=== PATIENT | female | born 1975 | race Caucasian/White ===

== ENCOUNTER 2017-02-19 08:32 | Day surgery (SDC) | payer OTHER ==
[~2017-02-19 08:32] MED LIST: IRON18 M1 PO; NORCO 7.5/325 T1 TAB PO; PRENATAL1 TAB PO; [UNRECOGNIZED DRUG - OTHER]
[2017-02-19 09:30] LABS: BASO % 0.4 % (0-2); EOS % 1.3 % (0-7); EOSINOPHIL ABSOLUTE COUNT 0.1 tho/cmm (0.0-0.7); HCT-HEMATOCRIT 40.8 % (34.0-49.0); HGB-HEMOGLOBIN 13.9 gm/dl (12.0-15.5); LYMPH % 34.5 % (20-45); LYMPH ABSOLUTE COUNT 1.7 tho/cmm (0.8-4.5); MCHC MEAN CORPUSCULAR HGB CONC 34.1 % (32.0-36.0); MCV (MEAN CELL VOLUME) 90.9 fl (82.0-96.0); MEAN PLATELET VOLUME 11.6 cmc (9.4-12.4); MONO % 10.5 % (0-12); MONOCYTE ABSOLUTE COUNT 0.5 tho/cmm (0.0-1.2); NEUTROPHIL ABSOLUTE COUNT 2.6 tho/cmm (1.6-8.0); NEUTROPHIL-AUTOMATED 2.6 tho/cmm (1.6-8.0); NEUTROPHILS % 53.3 % (40-80); PLATELET COUNT 172 tho/cmm (150-450); RED BLOOD COUNT 4.49 mil/cmm (4.00-5.20); WHITE BLOOD COUNT 4.8 tho/cmm (4.0-10.0)
[2017-02-19 09:36] LABS: PREGNANCY-SERUM NEGATIVE (NEGATIVE)
[2017-02-19 09:42] LABS: ALB/GLOB RATIO 1.4 (0.8-2.0); ALKALINE PHOSPHATASE 39 U/L (33-138); ALT/SGPT 19 U/L (12-78); ANION GAP 11 mmol/L (0-20); AST/SGOT 16 U/L (10-40); BILIRUBIN,TOTAL 0.5 mg/dl (0-1.5); BLOOD UREA NITROGEN 12 mg/dl (6-24); CALCIUM 8.5 mg/dl (8.5-10.5); CARBON DIOXIDE-VENOUS 27 mmol/L (22-32); CHLORIDE 107 mmol/l (96-110); CREATININE 0.82 mg/dl (0.50-1.10); GLUCOSE 89 mg/dL (70-110); POTASSIUM 3.8 mmol/L (3.7-5.1); SODIUM 141 mmol/L (135-145); eGFR VALUE FOR BLACK >90 mL/Min
[2017-02-20] MEDS ORDERED: PERCOCET 5-3251 EACH PO (00:41)
[2017-02-20] MEDS ORDERED: IBUPROFEN800 M1 PO (10:52)
[2017-02-20] MEDS ORDERED: COLACE100 M1 PO (10:53)
== END 2017-02-20 12:30 ==
LOC: WSU 08:32 → SHSB 08:36 → ORW 10:34 → PACU 12:15 → OBGF 13:10
PROVIDERS: Obstetrics & Gynecology
PROC: 0UT94ZZ Resection of Uterus, Percutaneous Endoscopic Approach (ICD-10-PCS; principal; 2017-02-19)
PROC: 0UTC4ZZ Resection of Cervix, Percutaneous Endoscopic Approach (ICD-10-PCS; 2017-02-19)
PROC: 8E0W4CZ Robotic Assisted Procedure of Trunk Region, Percutaneous Endoscopic Approach (ICD-10-PCS; 2017-02-19)
DX: N92.1 Excessive and frequent menstruation with irregular cycle (principal); D50.0 Iron deficiency anemia secondary to blood loss (chronic); K66.0 Peritoneal adhesions (postprocedural) (postinfection); Z87.891 Personal history of nicotine dependence; Z90.79 Acquired absence of other genital organ(s); Z79.899 Other long term (current) drug therapy; Z98.890 Other specified postprocedural states
CPT/HCPCS: J0690; J1170; J7030; J7121